=== PATIENT | female | born 1950 | race Caucasian/White ===

== ENCOUNTER → 2019-03-08 | Outpatient (CLI) | payer MEDICARE, BC ==
[2014-01-07 14:40] VITALS: BP 113/72
[~2019-03-08] MED LIST: ACET325T9 PO; ALPR1TAB2 PO; ASPI81TA59 PO; CHOL500016 PO; Metoprolol Tartrate PO
--- NOTE | 2019-03-08 16:34 | RAD ---
Examination: CT of the abdomen pelvis without contrast HISTORY: History of abdominal pain, GERD COMPARISON: None available TECHNIQUE: Axial CT images of the abdomen pelvis were performed without contrast. Coronal and sagittal reformats are performed. Exposure: One or more of the following individualized dose reduction techniques were utilized for this examination: 1. Automated exposure control 2. Adjustment of the mA and/or kV according to patient size 3. Use of iterative reconstruction technique FINDINGS: The bibasilar lungs are clear. No evidence of free air identified in the abdomen. The evaluation of the solid organs is limited due to lack of IV contrast. The evaluation of bowel is limited due to lack of oral contrast. The visualized noncontrasted liver, spleen, adrenals grossly appears unremarkable. The gallbladder is mildly distended. Small hiatal hernia is identified. Stomach is mildly distended. The visualized pancreas grossly appears unremarkable. Small bowel is nondilated. Feces and gas noted in the colon. Surgical changes identified in the right lower quadrant abdomen. Urinary bladder is mildly distended. No evidence of intrarenal collecting system calculi or hydronephrosis identified. Mild aortic atherosclerosis. Moderate degenerative changes lumbar spine. IMPRESSION: 1. Small hiatal hernia. Electronically signed by: Antonio Garcia MD (03/08/2019 4:31 PM) [id number]
== END | disposition home or self-care (01) ==
LOC: CT 11:20
PROVIDERS: ATTEND Physician Assistant Medical
DX: K44.9 Diaphragmatic hernia without obstruction or gangrene (principal); I70.0 Atherosclerosis of aorta; N32.89 Other specified disorders of bladder; K21.9 Gastro-esophageal reflux disease without esophagitis
CPT/HCPCS: 74176

== ENCOUNTER → 2019-10-14 | Outpatient (CLI) | payer MEDICARE, BC ==
[2014-01-07 14:40] VITALS: BP 113/72
--- NOTE | 2019-10-15 11:15 | RAD ---
Examination: 1. Bilateral digital diagnostic mammogram. 2. Limited right breast ultrasound. INDICATION: 16-year-old woman with a palpable lump in the right breast. She is due for screening. COMPARISON: None. This will serve as a new baseline. She reports her last mammogram was greater than 20 years ago. TECHNIQUE: Bilateral CC and MLO views were obtained with 2-D and 3-D technique and images were reviewed with computer-aided detection. Targeted right breast ultrasound was then performed of the area of palpable concern and of the right axilla. FINDINGS: The left mammogram is negative. The right mammogram shows a dense, spiculated 2.4 cm mass in the anterior upper outer right breast in the area of palpable concern as marked with a BB marker. Targeted ultrasound of the right breast reveals an antiparallel hypoechoic shadowing irregular mass measuring 2.3 cm mass at the right 11:00 position 3.5 cm from the nipple that correlates with the mammographic finding. No adenopathy in the right axilla on ultrasound. IMPRESSION: A 2.3 cm spiculated mass in the anterior upper outer right breast corresponds with the area of palpable concern and is highly suggestive of malignancy. Biopsy is recommended. BI-RADS Category 5 Highly suggestive of malignancy Biopsy recommended Discussed with Kaycee nurse for patient's referring provider STEFANIE Rowan by telephone at 11:12 am on 10/15/19.
== END | disposition home or self-care (01) ==
LOC: MAMMO 13:06
PROVIDERS: ATTEND Physician Assistant Medical
DX: R92.2 Inconclusive mammogram (principal); N63.11 Unspecified lump in the right breast, upper outer quadrant
CPT/HCPCS: 76641; 77066; G0279; 77062